=== PATIENT | male | born 1950 | race Caucasian/White ===

== ENCOUNTER 2017-01-06 09:40 | Inpatient (IN) ==
--- NOTE | 2017-01-05 22:24 | Discharge Summary ---
<Coleen Ocasio Juan - Last Filed: 01/05/17 22:21> Date of Encounter: 01/05/17 - Discharge Diagnosis (1) Arthritis of knee, right Priority: Primary Status: Acute (2) Status post total knee replacement, right Priority: Primary Status: Acute - Discharge Medications Home Medications: Aspirin Enteric Coated [Aspirin EC] 325 mg PO DAILY #21 tablet. 01/05/17 [Rx] OxyCODONE Immed Rel [Roxicodone 5 MG] 5 mg PO Q6HR PRN #28 tablet 01/05/17 [Rx] BuPROPion SR (12 HR) [Wellbutrin SR] 150 mg PO BID 01/06/17 [History] Finasteride [Proscar] 5 mg PO DAILY 01/06/17 [History] Naproxen 500 mg PO BID 01/06/17 [History] Allergies/Adverse Reactions: 3 Allergy/AdvReac Type Severity Reaction Status Date / Time Penicillins Allergy Hives Verified 01/06/17 09:57 Primary care physician: Elizabeth Stratton, - Patient Status Disposition: Home, Self-Care Condition: Good - Discharge Instructions Follow Up With: Elizabeth Stratton MD [Primary Care Provider] - - Hospital Course Hospital course: Mr. Tapia is a 66 year old male - Time Spent with Patient Total time spent providing and/or coordinating discharge services: <Shahab Quinteros - Last Filed: 01/07/17 06:45> Date of Encounter: 01/07/17 Time of Encounter: 06:45 - Discharge Diagnosis (1) Arthritis of knee, right Priority: Primary Status: Chronic (2) Status post total knee replacement, right Priority: Primary Status: Acute (3) Hyperlipidemia Priority: Secondary Status: Chronic Qualifiers: Hyperlipidemia type: unspecified Qualified Code(s): E78.5 - Hyperlipidemia , unspecified Primary care physician: Elizabeth Stratton, - Patient Status Functional capacity at discharge: uses cane/walker Overall status at discharge: patient is progressing back to baseline - Hospital Course Hospital course: Mr. Tapia is a 66 year old male Status post right total knee replacement The patient had an uneventful postoperative course. They received antibiotics and physical therapy and were discharged in stable condition. There will follow -up in the office in 2 weeks. - Time Spent with Patient Total time spent providing and/or coordinating discharge services:
[2017-01-06] MEDS ORDERED: Lidocaine -MPF 1% 2 ML VIAL ID ONE (10:01)
[2017-01-06] MEDS ORDERED: Clindamycin 900 MG/50 ML 900 MG/50 ML IV.SOLN IVPB ONE (10:01)
--- NOTE | 2017-01-06 10:07 | History & Physical Report ---
Date of Encounter: 01/06/17 Time of Encounter: 10:07 24 Hour HP Update - Instructions Instructions: If the History and Physical is less than 30 days old and was completed prior to A.M. admission and or procedure and has NOT been updated on calendar day of procedure please complete this update prior to performing procedure. - Update Patient reports changes in Medical Condition: No Changes in examination, assessment, or condition: No Changes in Medication: No Preop tests/diagnostics Reviewed: Yes Surgery Remains Indicated: Yes Consent for Planned Operative Procedure(s) Verified: Yes - Pre-Operative Checklist Preoperative Checklist Indicated: No Prophylactic Antibiotic Ordered: Yes Is VTE Prophylaxis Indicated?: Yes
[2017-01-06] MEDS ORDERED: Famotidine 20 MG/2 ML VIAL IVP ONE (10:18)
[2017-01-06] MEDS ORDERED: *HR* Promethazine 25 MG/ML VIAL IVP PRN (10:18)
[2017-01-06] MEDS ORDERED: *HR* Labetalol 20 MG/4 ML SYRINGE IVP PRN (10:18)
[2017-01-06] MEDS ORDERED: Acetaminophen IV 1,000 MG/100 ML INFUS..BTL IVPB ONE (10:20)
--- NOTE | 2017-01-06 10:23 | Anesthesia Evaluation PreOp ---
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 ASSOCIATE History: Other (Anxiety/Depression maintained on Wellbutrin) Other Medical History: Other (BPH/elevated PSA maintained on Finasteride) Anesthesia History: No Prior Anesthetic Complications, Past Anesthesia (T&A, Cataracts) Alcohol Use: unknown Drug use: unknown Medications and Allergies Aspirin Enteric Coated [Aspirin EC] 325 mg PO DAILY #21 tablet.dr 01/05/17 [Rx] OxyCODONE Immed Rel [Roxicodone 5 MG] 5 mg PO Q6HR PRN #28 tablet 01/05/17 [Rx] BuPROPion SR (12 HR) [Wellbutrin SR] 150 mg PO BID 01/06/17 [History] Finasteride [Proscar] 5 mg PO DAILY 01/06/17 [History] Naproxen [Naproxen] 500 mg PO BID 01/06/17 [History] 3 Allergy/AdvReac Type Severity Reaction Status Date / Time Penicillins Allergy Hives Verified 01/06/17 09:57 - Meds/Allergy Pre-op Review Medications Reviewed: Yes Allergies Reviewed: Yes Beta Blockers on Current Med List: No Anesthesia Results - Labs Laboratory Tests 12/18/16 12/18/16 12/18/16 14:06 14:06 14:06 WBC 8.5 Hgb 14.2 Hct 42.7 Plt Count 261 PT 11.1 INR 1.0 APTT 25.6 L Sodium 139 Potassium 4.1 Chloride 107 Carbon Dioxide 24 BUN 19 Creatinine 1.08 Est GFR (Non-Af Amer) > 60 Anesthesia Exam O2 Sat Height 1.78 m Weight 88.451 kg Height: 5'10" Weight: 195# BMI = 28 NPO (# of Hours): MNOc - HEENT Pupil (Motor): Pupils equal, EOMI Mallampati: III Teeth: Normal (fair dentition. Old, well-healed haas shaped scar on tongue) Oral Opening: Greater than 3 - TALENT ASSOCIATE LOC: Oriented TALENT ASSOCIATE Motor: Normal RUE, Normal LUE, Normal RLE, Normal LLE, Normal Face TALENT ASSOCIATE Sensory: Normal: RUE, LUE, RLE, LLE, Face - Cardiac Rhythm: Regular Murmur: None JVD: No - Pulmonary Breath Sounds: bilateral Clear Respiratory Effort: Symmetrical Anesthesia Assess/Plan ASA Score: 2 Modified [place] Scale for Level of Consciousness: Cooperative, oriented, and tranquil Anesthetic Plan: General, Regional Monitoring Plan: Standard Monitors Recovery Plan: PACU Anes Supervising Prov Stmt: Pt seen/evaluated, R&B Discussed, questions answered and consent obtained. Avni Kohli MD
[2017-01-06] MEDS ORDERED: Lidocaine -MPF 2% 2 ML VIAL ONE (10:25)
[2017-01-06] MEDS ORDERED: *HR* Midazolam HCl 2 MG/2 ML VIAL ONE (10:25)
[2017-01-06] MEDS ORDERED: *HR* FentaNYL (PF) 100 MCG/2 ML VIAL ONE (10:25)
[2017-01-06] MEDS ORDERED: *HR* Propofol 200 MG/20 ML VIAL IVP ONE (10:25)
[2017-01-06] MEDS ORDERED: Ondansetron 4 MG/2 ML VIAL ONE (10:29)
[2017-01-06] MEDS: Ringers Solution, Lactated 1,000 ML IVC SCH ×3 (10:41→13:38)
[2017-01-06] MEDS ORDERED: ROPIVACAINE HCL/PF 0.5% 30 ML VIAL ONE (10:52)
[2017-01-06] MEDS ORDERED: Bupivacaine/Clonidine Syringe 1 EACH SYRINGE ONE (10:52)
--- NOTE | 2017-01-06 11:17 | Anesthesia Procedures ---
Date of Encounter: 01/06/17 Time of Encounter: 11:15 Procedures: Anesthesia - Nerve Block Procedure Date: 01/06/17 (n) Time: 11:15 Allergies/Adv Reactions: Allergies Penicillins Allergy (Verified 01/06/17 09:57) Hives Pre-op Diagnosis: right knee oa Surgical Procedure: right total knee Checklist: Correct Patient Identifier, Correct procedure, History checked Correct side: Right Blood Thinner: No Monitor Applied: EKG, BP, Pulse Oximetry Supplemental Oxygen via Nasal Cannula (L/min): 2 Sedation: Versed (mg): 2 Sedation: Fentanyl (mcg): 100 Indication: Post Op Analgesia Pre-op Neuro Deficits: No Block Type: Femoral (0.5% ropivicaine 30cc), Other (iPACK 20cc 0.25% bupivicaine with clonidine) Catheter placed: No Sterile Technique: Yes Ultrasound used: Yes Anatomy identified: Yes Visual spread of Local: Yes Neuro Stimulation: No Blood on Needle Aspiration: No Smooth Injection of Local: Yes Pain with Injection of Local: No Prep: Chlorhexadine Needle: 22 x 50 mm Stimuplex (fem), 21 x 100 mm Stimuplex (ipack) Volume (cc): 50 Number of Attempts: 1 Complications: None/effective block
[2017-01-06] MEDS ORDERED: Ethanol\\Acetic Acid\\Na Ace\\Ben 1,000 ML IRRIG.SOLN IR ONE (11:32)
[2017-01-06] MEDS ORDERED: EPHEDrine 50 MG/ML VIAL ONE (12:10)
[2017-01-06] MEDS ORDERED: *HR* HYDROmorphone 2 MG/ML SYRINGE ONE (12:19)
[2017-01-06] MEDS ORDERED: Dexamethasone 4 MG/ML VIAL ONE (12:27)
--- NOTE | 2017-01-06 12:32 | Orthopedic Operative Note ---
Date of procedure: 01/06/17 Pre-op diagnosis: right knee arthritis Post-op diagnosis: same Procedure: Procedure: right Total knee replacement Estimated blood loss: 200 cc Hardware: Metal and polyethylene replacement. Arthrex Femur: 7 Tibia: 7 PS insert: 14 Patella:40 Exam Under anesthesia:Full motion no instability Procedural Notes:Grade 4 arthritic changes medial compartment and patellofemoral joint Operative procedure: The patient was brought to the operating room and placed on the operating room table. After general anesthesia was administered the operative knee was examined. Findings were noted in the exam under anesthesia. The operative extremity was prepped and draped in sterile surgical fashion. The patient received IV antibiotics prior to skin incision. A standard midline incision was made centered over the patella. The incision was made through the skin and subcutaneous tissue. A medial parapatellar tendon approach was performed. Care was taken to preserve tissue along the medial aspect of the patella. And to protect the patella tendon. The deep MCL was released off the medial tibia. The infra patella fat pad was excised. Knee was brought into flexion. Patient noted to have Grade 4 arthritic changes medial compartment and patellofemoral joint. The entry hole was made for the intramedullary femoral guide. The guide was seated in 6 degrees of valgus. Anterior cut was made followed by the distal cut. The ACL the PCL the medial and the lateral menisci were excised. The tibia was subluxed forward. The entry hole was made for the intramedullary tibial guide. Guide was seated to resect 2 mm off the more abnormal side. The knee was brought into flexion the distal femur was sized to a 7. The femoral guide was seated, the anterior cut was made followed by the posterior condylar cut, followed by the chamfer cuts. The finishing guide was seated the box cut was made and the lug holes were drilled. The tibia was sized to a 7, the tibial tray was seated and prepared with the large drill followed by the fin cutter. Trial reduction revealed full extension no varus valgus instability with the appropriate 14 PS [place]. The patella was everted and cut was made at the level of the insertion of the quadriceps and patella tendon. The patella was sized to a 40 the guide was seated and the lug holes are drilled. Trial reduction revealed excellent patella tracking. All trial components were removed all bony surfaces were irrigated. The tibia was cemented first followed by the femur. The 14 PS [place] was seated and the knee was brought into full extension. The patella was cemented and held in place with the patellar holding clamp. After the cement had hardened, the knee sat for 2 minutes with a Betadine saline solution. The knee was then irrigated out with 2 L of pulse irrigation. The PA closed the knee. The extensor mechanism was closed with #2 FiberWire suture and #2 PDS suture. The subcutaneous tissue was then irrigated and closed deep with #1 PDS suture superficially with 0 PDS suture and skin was closed with skin ana. The patient was then placed in a sterile dressing and a postoperative brace extubated and transferred to recovery room in stable condition. Anesthesia: GETDena Surgeon: Shahab Quinteros Condition: stable Disposition: PACU
[2017-01-06] MEDS: *HR* HYDROmorphone (PF) 1 MG/ML SYRINGE IVP PRN ×6 (13:28→14:21)
[2017-01-06 13:32] LABS: Hematocrit 35.2 % (37.5-50.1); Hemoglobin 11.9 g/dL (12.9-16.9)
[2017-01-06] MEDS ORDERED: Gabapentin 300 MG CAPSULE PO STA (14:09)
--- NOTE | 2017-01-06 14:29 | Anesthesia Evaluation Post Op ---
Date of Encounter: 01/06/17 Time of Encounter: 14:28 - Vital Signs Vital Signs: Vital Signs/O2 Sat/Glucose, Most Recent Temp Pulse Resp BP Pulse Ox 97.2 F L 66 14 102/73 98 01/06/17 14:05 01/06/17 14:15 01/06/17 14:15 01/06/17 14:15 01/06/17 14:15 - Lungs Lungs: Clear Ascult./Percussion - Airway Airway: Non-obstructed - Cardiovascular Regular Rate - Mental Status Mental Status: Alert & Oriented, Answers Appropriately - Pain Pain Scale: 4 (pt states tolerable) Pain Scale used: Numeric (1 - 10) - Nausea Vomiting Nausea Vomiting: Not Present - Hydration Hydration: NPO - Discharge PostOp Status: Transfer Patient to floor
[2017-01-06] MEDS ORDERED: Naloxone 0.4 MG/ML INJ IVP PRN (14:56)
[2017-01-06] MEDS ORDERED: *HR* OxyCODONE Immed Rel 5 MG TABLET PO PRN (14:56)
[2017-01-06] MEDS: *HR* Enoxaparin 30 MG/0.3 ML SYRINGE SQ SCH (17:16)
[2017-01-06] MEDS: Clindamycin 900 MG/50 ML 900 MG/50 ML IV.SOLN IVPB SCH (17:16)
[2017-01-06] MEDS ORDERED: *HR* Enoxaparin 30 MG/0.3 ML SYRINGE SQ SCH (18:00)
[2017-01-06] MEDS: *HR* OxyCODONE Immed Rel 5 MG TABLET PO PRN (18:56)
[2017-01-06] MEDS ORDERED: Sennosides 8.6 MG TABLET PO PRN (21:00)
[2017-01-06] MEDS ORDERED: Temazepam 15 MG CAPSULE PO PRN (21:00)
[2017-01-06] MEDS ORDERED: MOM Conc 10 ML UD.LIQ PO PRN (21:00)
[2017-01-06] MEDS: Ondansetron 4 MG/2 ML VIAL IVP PRN (22:51)
[2017-01-06] MEDS: BuPROPion SR (12 HR) 150 MG TABLET PO SCH (22:51)
[2017-01-07] MEDS: *HR* OxyCODONE Immed Rel 5 MG TABLET PO PRN ×5 (00:08→22:25)
[2017-01-07] MEDS: Clindamycin 900 MG/50 ML 900 MG/50 ML IV.SOLN IVPB SCH (00:09)
[2017-01-07] MEDS: *HR* HYDROmorphone (PF) 1 MG/ML SYRINGE IVP PRN ×3 (01:42→15:58)
[2017-01-07] MEDS: *HR* Enoxaparin 30 MG/0.3 ML SYRINGE SQ SCH ×2 (06:03→17:08)
[2017-01-07] MEDS: Ondansetron 4 MG/2 ML VIAL IVP PRN (06:08)
[2017-01-07 06:19] LABS: Hematocrit 34.1 % (37.5-50.1); Hemoglobin 11.3 g/dL (12.9-16.9)
[2017-01-07 06:33] LABS: BUN/Creatinine Ratio 21 (6-26); Blood Urea Nitrogen 19 mg/dL (8-26); Calcium 8.4 mg/dL (8.6-10.8); Carbon Dioxide 25 mEq/L (19-29); Chloride 104 mEq/L (98-109); Glucose 112 mg/dL (70-99); Osmolality,Calculated 291 (280-300); Potassium 4.4 mEq/L (3.5-4.5); Sodium 139 mEq/L (136-145); eGFR For African Americans > 60 (> 60); eGFR For Non-African Americans > 60 (> 60)
--- NOTE | 2017-01-07 06:46 | Orthopedics Progress Note ---
Date of Encounter: 01/07/17 Time of Encounter: 06:46 - Assessment and Plan (1) Arthritis of knee, right Current Visit: No Status: Chronic (2) Status post total knee replacement, right Current Visit: No Status: Acute (3) Hyperlipidemia Current Visit: Yes Status: Chronic Qualifiers: Hyperlipidemia type: unspecified Qualified Code(s): E78.5 - Hyperlipidemia , unspecified Subjective Interval history: Patient was seen this morning doing well without complaints. Afebrile vital signs stable. Operative extremity: Neurovascularly intact Dressing clean dry and intact Calves nontender Assessment and plan: Continue with postoperative care Hematocrit 34 discharged today Objective Vital signs: Vital Signs Temp Pulse Resp BP Pulse Ox 01/07/17 06:36 98.0 F 67 18 122/63 99 01/07/17 03:55 98.0 F 64 17 108/68 97 01/07/17 01:32 97.9 F 70 18 118/70 98 01/06/17 18:57 98.8 F 63 18 109/69 99 01/06/17 18:00 97.5 F L 72 14 104/61 99 01/06/17 17:10 97.4 F L 68 14 109/58 97 01/06/17 16:10 97.3 F L 64 14 122/74 96 01/06/17 15:23 97.4 F L 64 12 122/74 90 01/06/17 15:09 100 01/06/17 14:58 97.4 F L 67 14 110/65 100 01/06/17 14:35 97.0 F L 59 14 107/75 96 01/06/17 14:25 65 16 107/69 100 01/06/17 14:15 66 14 102/73 98 01/06/17 14:05 97.2 F L 63 16 107/65 94 01/06/17 13:55 67 14 109/74 95 01/06/17 13:45 65 16 104/74 99 01/06/17 13:35 97.4 F L 67 16 99/62 95 01/06/17 13:25 72 16 104/64 100 01/06/17 13:15 66 12 89/59 100 01/06/17 13:05 97.0 F L 69 12 91/65 94 01/06/17 11:33 73 14 133/81 100 01/06/17 11:18 70 14 134/85 99 01/06/17 11:02 72 16 145/91 100 01/06/17 10:34 98.6 F 74 18 156/94 99 Intake and Output 01/06/17 01/06/17 01/07/17 15:59 23:59 07:59 Intake Total 1999 50 / 50 400 / 400 Output Total 200 / 200 200 / 200 Balance 1800 / 1800 50 / 50 200 / 200 Intake: IV Fluids 1999 50 / 50 Lactated Ringers 1,000 ML @ 25 2000 / 2000 mls/hr IVC .Q24H [facility] Rx#: [id number] Cleocin Premix 900 MG/50 ML 900 50 / 50 mg In 50 ml @ 50 mls/hr IVPB Q8HR [facility] Rx#:[id number] Oral 0 / 0 400 / 400 Output: Urine 200 / 200 Estimated Blood Loss 200 / 200 Other: Weight 88.451 kg - Labs CBC & BMP: 01/07/17 05:30 01/07/17 05:30 Labs: Abnormal lab results Hgb 11.3 g/dL (12.9-16.9) L 01/07/17 05:30 Hct 34.1 % (37.5-50.1) L 01/07/17 05:30 Glucose 112 mg/dL (70-99) H 01/07/17 05:30 Calcium 8.4 mg/dL (8.6-10.8) L 01/07/17 05:30 - VTE Documentation of Mechanical Device: Venous foot pump, device Consult Discharge Plan - Plan Referrals: Elizabeth Stratton MD [Primary Care Provider] -
[2017-01-07] MEDS: Finasteride 5 MG TABLET PO SCH (08:21)
[2017-01-07] MEDS: BuPROPion SR (12 HR) 150 MG TABLET PO SCH ×2 (08:21→22:25)
[2017-01-07] MEDS ORDERED: Scopolamine Patch 1.5 MG PATCH.TD72 TD ONE (08:39)
[2017-01-07] MEDS: Ringers Solution, Lactated 1,000 ML IVC SCH (10:23)
--- NOTE | 2017-01-07 12:37 | Event Note ---
Date of Encounter: 01/07/17 Time of Encounter: 12:35 PCR - Right TKR 01/06 POD#.1 Comorbidities: N/A Labs: Stable Patient seen at bedside. Pain control: Somewhat controlled Added Toradol 15mg q 6 hour Added Gabapentin 600mg Q HS Not participating in PT. Discussed the necessity of PT with patient All questions and concerns addressed. Educated on use of incentive spirometer, ambulation, and hydration. Patient educated on post-operative restrictions and care. Addressed: See Above D/C plan: Patient wishes to go home with outpatient May require ECF, continuity placed and will likely D/C on .
--- NOTE | 2017-01-07 12:38 | Physician Discharge Referral ---
ExtendedCare Referral Info Transfer To: [facility] Provider in Charge: Provider in Charge after Transfer: PCP Institutional Level of Care: Skilled - Diagnosis (1) Arthritis of knee, right Priority: Primary Status: Chronic (2) Status post total knee replacement, right Priority: Primary Status: Acute Expected Duration of Placement: < 30 days Prognosis: Good Aware of Diagnosis: Patient Aware of Prognosis: Patient - Transfer Medications Home Medications: Aspirin Enteric Coated [Aspirin EC] 325 mg PO DAILY #21 tablet. 01/05/17 [Rx] OxyCODONE Immed Rel [Roxicodone 5 MG] 5 mg PO Q6HR PRN #28 tablet 01/05/17 [Rx] BuPROPion SR (12 HR) [Wellbutrin SR] 150 mg PO BID 01/06/17 [History] Finasteride [Proscar] 5 mg PO DAILY 01/06/17 [History] Naproxen 500 mg PO BID 01/06/17 [History] Allergies/Adverse Reactions: 3 Allergy/AdvReac Type Severity Reaction Status Date / Time Penicillins Allergy Hives Verified 01/06/17 09:57 - Respiratory Orders None Smoking Cessation: Smoking cessation has been advised. For more information, call the [place] Tobacco Quit Line at 7-687-JJYA-NOW. - Ancillary Orders May use pressure relief devices daily prn, May go on CINDI w/family/respon green party w /meds at nurse discretion PRN, May consult with Dentist, Assistant Press Operator, Fitness/Wellness Director PRN - Mobility Orders Chair, Ambulate - Rehabiliation Orders Rehab Potential: Good Rehab Orders: ROM Exercises, Evaluation for Physical Therapy, Evaluation for Occupational Therapy - Treatments Skin tear care topically daily PRN per policy List/Other: Opsite dressing, leave intact until first post-operative visit. If dressing becomes >50% saturated, contact office, remove dressing and place appropriate dressing in its place. Do not allow for dressing to get wet. Zipline closure in place, plan to remove at post-operative day #14-16. Total Joint Precautions x 6 weeks Apply cold therapy wrap 3-6x/day for 20 minutes at a time. Encourage ambulation throughout the day Use Incentive spirometer 10x/hour. Elevate affected extremity above heart as tolerated. Brace: Wear knee immobilizer at night x 2 weeks. CERTIFICATION: I certify that the transfer of the above named patient to an Extended Care Facility is necessary for the continuing treatment of the diagnosis listed. The above information is true and accurate reflection of patient's current condition. Confidential - Redisclosure prohibited without a patient's written consent.
[2017-01-07] MEDS: Gabapentin 300 MG CAPSULE PO SCH ×2 (13:56→22:25)
[2017-01-07] MEDS: Ketorolac 15 MG/ML VIAL IVP SCH (17:07)
[2017-01-08] MEDS: *HR* HYDROmorphone (PF) 1 MG/ML SYRINGE IVP PRN (00:59)
[2017-01-08] MEDS: Ketorolac 15 MG/ML VIAL IVP SCH ×4 (01:02→17:27)
[2017-01-08] MEDS: *HR* OxyCODONE Immed Rel 5 MG TABLET PO PRN ×4 (04:23→23:32)
[2017-01-08] MEDS: *HR* Enoxaparin 30 MG/0.3 ML SYRINGE SQ SCH ×2 (05:00→17:27)
[2017-01-08 06:23] LABS: Hematocrit 31.1 % (37.5-50.1); Hemoglobin 10.5 g/dL (12.9-16.9)
[2017-01-08 06:37] LABS: BUN/Creatinine Ratio 19 (6-26); Blood Urea Nitrogen 16 mg/dL (8-26); Calcium 8.5 mg/dL (8.6-10.8); Carbon Dioxide 30 mEq/L (19-29); Chloride 101 mEq/L (98-109); Glucose 104 mg/dL (70-99); Osmolality,Calculated 281 (280-300); Sodium 135 mEq/L (136-145); eGFR For African Americans > 60 (> 60); eGFR For Non-African Americans > 60 (> 60)
[2017-01-08] MEDS: Ringers Solution, Lactated 1,000 ML IVC SCH ×3 (07:46→07:48)
--- NOTE | 2017-01-08 08:11 | Orthopedics Progress Note ---
Date of Encounter: 01/08/17 Time of Encounter: 08:10 - Assessment and Plan (1) Arthritis of knee, right Current Visit: No Status: Chronic (2) Status post total knee replacement, right Current Visit: No Status: Acute (3) Hyperlipidemia Current Visit: Yes Status: Chronic Qualifiers: Hyperlipidemia type: unspecified Qualified Code(s): E78.5 - Hyperlipidemia , unspecified Subjective Interval history: Patient was seen this morning doing well without complaints. Afebrile vital signs stable. Operative extremity: Neurovascularly intact Dressing clean dry and intact Calves nontender Assessment and plan: Continue with postoperative care Hematocrit 31 discharged today Objective Vital signs: Vital Signs Temp Pulse Resp BP Pulse Ox 01/08/17 06:38 98.7 F 94 16 139/78 98 01/08/17 00:12 99.2 F 86 18 147/74 96 01/07/17 19:16 98.2 F 76 18 124/65 95 01/07/17 15:21 98.4 F 71 20 116/66 97 01/07/17 11:22 99 01/07/17 11:20 97.7 F 77 16 114/69 01/07/17 08:52 116/70 Intake and Output 01/07/17 01/08/17 01/08/17 23:59 07:59 15:59 Output Total 250 / 250 800 / 800 Balance -250 / -250 -800 / -800 Output: Urine 250 / 250 800 / 800 - Labs CBC & BMP: 01/08/17 05:55 01/08/17 05:55 Labs: Abnormal lab results Hgb 10.5 g/dL (12.9-16.9) L 01/08/17 05:55 Hct 31.1 % (37.5-50.1) L 01/08/17 05:55 Sodium 135 mEq/L (136-145) L 01/08/17 05:55 Carbon Dioxide 30 mEq/L (19-29) H 01/08/17 05:55 Glucose 104 mg/dL (70-99) H 01/08/17 05:55 Calcium 8.5 mg/dL (8.6-10.8) L 01/08/17 05:55 - VTE Documentation of Mechanical Device: Venous foot pump, device Consult Discharge Plan - Plan Referrals: Shahab Quinteros MD [Partnered Physician] - 02/05/17 4:20 pm Coleen Ocasio, PAC [Physician Transportation Consultant] - 01/16/17 2:00 pm Elizabeth Stratton MD [Primary Care Provider] -
[2017-01-08] MEDS: BuPROPion SR (12 HR) 150 MG TABLET PO SCH ×2 (08:46→19:21)
[2017-01-08] MEDS: Finasteride 5 MG TABLET PO SCH (08:46)
[2017-01-08] MEDS: Gabapentin 300 MG CAPSULE PO SCH (19:21)
[2017-01-09] MEDS: Ketorolac 15 MG/ML VIAL IVP SCH ×2 (00:20→06:55)
[2017-01-09] MEDS: *HR* OxyCODONE Immed Rel 5 MG TABLET PO PRN (06:54)
[2017-01-09] MEDS: *HR* Enoxaparin 30 MG/0.3 ML SYRINGE SQ SCH (06:55)
--- NOTE | 2017-01-09 07:54 | Orthopedics Progress Note ---
Date of Encounter: 01/09/17 Time of Encounter: 07:53 - Assessment and Plan (1) Arthritis of knee, right Current Visit: No Status: Chronic (2) Status post total knee replacement, right Current Visit: No Status: Acute (3) Hyperlipidemia Current Visit: Yes Status: Chronic Qualifiers: Hyperlipidemia type: unspecified Qualified Code(s): E78.5 - Hyperlipidemia , unspecified Subjective Interval history: Patient was seen this morning doing well without complaints. Afebrile vital signs stable. Operative extremity: Neurovascularly intact Dressing clean dry and intact Calves nontender Assessment and plan: Continue with postoperative care Discharge held secondary to need for placement. Discharge today Objective Vital signs: Vital Signs Temp Pulse Resp BP Pulse Ox 01/09/17 07:17 99.3 F 71 16 137/80 97 01/08/17 22:55 101.0 F H 86 16 133/68 98 01/08/17 19:14 99.4 F 93 18 121/71 98 01/08/17 16:06 98.2 F 86 18 141/75 99 01/08/17 11:11 98.4 F 90 16 124/71 98 Intake and Output 01/08/17 01/08/17 01/09/17 15:59 23:59 07:59 Intake Total 300 / 300 Output Total 1000 / 1000 350 / 350 400 / 400 Balance -700 / -700 -350 / -350 -400 / -400 Intake: Oral 300 / 300 Output: Urine 1000 / 1000 350 / 350 400 / 400 Other: Meal Lunch Percent of Meal Consumed 60% # Voids 1 - Labs CBC & BMP: 01/08/17 05:55 01/08/17 05:55 Labs: Abnormal lab results Hgb 10.5 g/dL (12.9-16.9) L 01/08/17 05:55 Hct 31.1 % (37.5-50.1) L 01/08/17 05:55 Sodium 135 mEq/L (136-145) L 01/08/17 05:55 Carbon Dioxide 30 mEq/L (19-29) H 01/08/17 05:55 Glucose 104 mg/dL (70-99) H 01/08/17 05:55 Calcium 8.5 mg/dL (8.6-10.8) L 01/08/17 05:55 - VTE Documentation of Mechanical Device: Venous foot pump, device Consult Discharge Plan - Plan Referrals: Shahab Quinteros MD [Partnered Physician] - 02/05/17 4:20 pm Coleen Ocasio, PAC [Physician Classification Officer] - 01/16/17 2:00 pm Elizabeth Stratton MD [Primary Care Provider] -
[2017-01-09] MEDS: BuPROPion SR (12 HR) 150 MG TABLET PO SCH (09:22)
[2017-01-09] MEDS: Finasteride 5 MG TABLET PO SCH (09:22)
[2017-01-09 11:23] VITALS: BP 128/86
[2017-01-09] MEDS ORDERED: FLUARIX QUAD 2017-18 36MOS UP/PF 0.5 ML SYRINGE IM ONE (11:32)
== END 2017-01-09 12:07 | disposition home or self-care (01) | DRG 470 ==
LOC: SAMDAY 09:40 → 3NENU 15:11
PROVIDERS: ADMIT Orthopaedic Surgery; ATTEND Orthopaedic Surgery